=== PATIENT | female | born 1960 | race Caucasian/White ===

== ENCOUNTER 2017-07-04 11:21 | Emergency (ER) | payer BC ==
[~2017-07-04] VITALS: Ht 165.1 cm; Wt 77.6 kg
[~2017-07-04 11:21] MED LIST: ESTRADIOL PO; KEFLEX500 MG PO; LOVENOX60 MG/0.6 SC; PROGESTERONE PO
[2017-07-04] MEDS ORDERED: KETOROLAC TROMETHAMINE 60 MG/2 ML VIAL IM ONE (13:00)
== END 2017-07-04 14:17 | disposition home or self-care (01) ==
LOC: ER 11:21
DX: S39.012A Strain of muscle, fascia and tendon of lower back, initial encounter (principal); Y93.89 Activity, other specified; M25.551 Pain in right hip
CPT/HCPCS: 99282; J1885

== ENCOUNTER → 2017-11-08 | Outpatient (CLI) | payer BC | LOC: MAMMO 14:00 | PROVIDERS: ATTEND Obstetrics & Gynecology | DX: Z12.31 Encounter for screening mammogram for malignant neoplasm of breast (principal) | CPT/HCPCS: 77067 ==

== ENCOUNTER → 2018-10-26 | Outpatient (CLI) | payer BC | LOC: MAMMO 09:07 | PROVIDERS: ATTEND Obstetrics & Gynecology | DX: Z12.31 Encounter for screening mammogram for malignant neoplasm of breast (principal) | CPT/HCPCS: 77067 ==